=== PATIENT | female | born 1935 | race Caucasian/White ===

== ENCOUNTER 2019-03-09 07:03 | Observation (INO) | payer OTHER ==
[2019-03-06 11:37] LABS: Absolute Lymphocytes (CBC) 1.8 K/uL (0.7-4.9); Basophils % 0.9 % (0-1.3); Hematocrit 38.8 % (36.0-45.0); MPV 9.5 fL (7.6-11.3); RBC Red Blood Cell Count 4.32 M/uL (3.86-4.86)
--- NOTE | 2019-03-06 11:47 | RAD REPORT ---
EXAM DESCRIPTION: RAD - Chest Pa And Lat (2 Views) - 03/06/2019 11:09 am CLINICAL HISTORY: Preop chest, pending hernia repair COMPARISON: None. TECHNIQUE: PA and lateral views of the chest were obtained. FINDINGS: The lungs are clear of an acute infiltrate, mass or failure finding. A very small less becca n 5 mm nodule in the left upper lung field is seen. Long-term significance is doubtful. The patient h as smoking history or other clinical concern follow-up imaging could be performed in 4-6 months. This is not of acute clinical significance. Scarring changes in the medial aspect of each lower lung field noted. Patient may have bronchiectasis as well. Heart size is normal and central vasculature is within normal limits. No pleural effusion or pneu mothorax seen. No acute bony finding noted. No aortic abnormality. IMPRESSION: No acute cardiopulmonary finding seen pertaining to the pending surgical procedure. Very small pulmonary nodule left upper lobe is not acutely significant. At less than 5 mm this is pro bably not significant but can be re-evaluated in 4-6 months with chest film. Chronic parenchymal changes in each medial lung base.
[2019-03-06 11:58] LABS: Potassium 4.2 mmol/L (3.5-5.1)
--- NOTE | 2019-03-06 13:32 | EKG ---
Test Date: 2019-03-06 Test Time: 10:57:58 Coding Technician: TG MEASUREMENT RESULTS: Intervals: Rate: 65 MT: 148 QRSD: 84 QT: 414 QTc: 430 [place]: P: 41 MT: 148 QRS: 55 T: 72 INTERPRETIVE STATEMENTS: Normal sinus rhythm Normal ECG No previous ECG available for comparison Electronically Signed On 03-06-19 13:32:00 CDT by Baldemar Holley
[2019-03-09] MEDS ORDERED: Ringers Lactate 1,000 ML IV ONE ×2 (07:42→09:47)
[2019-03-09] MEDS ORDERED: ROCURONIUM 50 MG/5 ML VIAL IV ONE (08:16)
[2019-03-09] MEDS ORDERED: PROPOFOL 200 MG/20 ML VIAL IV ONE (08:16)
[2019-03-09] MEDS ORDERED: dexAMETHasone 10 MG/ML VIAL ONE (08:16)
[2019-03-09] MEDS ORDERED: FENTANYL CITR 250 MCG/5 ML ONE (08:16)
[2019-03-09] MEDS ORDERED: LIDOCAINE 2% MPF 5 ML VIAL ONE (08:16)
[2019-03-09] MEDS ORDERED: MIDAZOLAM HCL 2 MG/2 ML INJ ONE (08:33)
[2019-03-09] MEDS ORDERED: CEFAZOLIN/SWI 1gm 1 GM/10 ML SYR ONE (08:36)
[2019-03-09] MEDS ORDERED: EPHEDRINE SULF 50 MG/ML VIAL ONE (08:58)
[2019-03-09] MEDS ORDERED: KETOROLAC 30 MG/ML INJ ONE (10:06)
--- NOTE | 2019-03-09 10:10 | P.BOP ---
Preoperative diagnosis: incarcerated small bowel incisional lower ventral hernia and incarc umbilic Postoperative diagnosis: same plus extensive intrabdominal adhesions Primary procedure: 1. Exploratory laparotomy, 2. extensive Lysis of adhesions Secondary procedure: 3. Open repair of incarcerated small bowel incisional lower ventral hernia Other procedure(s): 4. Open repair of incarcerated periumbilical hernia Estimated blood loss: <10cc Specimen: hernia sac Findings: incarcerated small bowel lower ventral area Anesthesia: General Complications: None Transferred to: Recovery Room Condition: Good
[2019-03-09] MEDS ORDERED: SODIUM CHLORIDE 0.9% 10ML INJ IV PRN (10:11)
[2019-03-09] MEDS ORDERED: ONDANSETRON 4 MG/2 ML VIAL IV PRN (10:11)
[2019-03-09] MEDS ORDERED: MORPHINE 2 MG/ML SYR IV PRN (10:22)
[2019-03-09] MEDS ORDERED: HYDROCODONE/APAP 5/325 MG TAB PO PRN (10:22)
[2019-03-09] MEDS: NA CHLORIDE 0.9% 1,000 ML IV SCH ×2 (11:00→21:10)
[2019-03-09] MEDS ORDERED: PROMETHAZINE 25 MG/ML VIAL ONE (11:25)
[2019-03-09] MEDS: MORPHINE 4 MG/ML SYR ONE ×2 (11:26→11:34)
[2019-03-09] MEDS ORDERED: METOCLOPRAMIDE 10 MG/2mL INJ ONE (11:39)
[2019-03-09] MEDS ORDERED: CEFOXITIN 1 GM in NA CHLORIDE 0.9% 100 ML IVPB SCH (12:00)
[2019-03-09] MEDS: CEFOXITIN/SWI 1gm 1 GM/10 ML SYR IV SCH ×2 (13:26→18:32)
[2019-03-10] MEDS: CEFOXITIN/SWI 1gm 1 GM/10 ML SYR IV SCH (00:44)
[2019-03-10 02:12] LABS: Urine Appearance CLOUDY; Urine Bilirubin NEGATIVE (NEG); Urine Blood 3+ (NEG); Urine Color YELLOW; Urine Glucose NEGATIVE (NEG); Urine Protein NEGATIVE (NEG); Urine Urobilinogen 0.2 mg/dL (0.2-1.0); Urine pH 5.5 (5.0-7.0)
[2019-03-10 02:13] LABS: Urine Microscopic Reflex ORDER UMIC
[2019-03-10 02:34] LABS: Urine Bacteria <20 /HPF (<20); Urine Culture Reflex Order REFLEXED; Urine Mucus SLIGHT /HPF (NONE SEEN); Urine RBC 20-50 /HPF (NONE SEEN)
[2019-03-10] MEDS: NA CHLORIDE 0.9% 1,000 ML IV SCH ×2 (03:16→12:23)
[2019-03-10 06:27] LABS: Absolute Lymphocytes (CBC) 1.3 K/uL (0.7-4.9); Hematocrit 34.7 % (36.0-45.0); Lymphocytes % 9.4 % (15.3-44.8); MPV 9.6 fL (7.6-11.3); RBC Red Blood Cell Count 3.83 M/uL (3.86-4.86)
[2019-03-10 06:45] LABS: Potassium 4.7 mmol/L (3.5-5.1)
[2019-03-10] MEDS ORDERED: PANTOPRAZOLE 40 MG INJ IVP SCH (09:00)
[2019-03-10] MEDS ORDERED: ENOXAPARIN 40 MG/0.4 ML SQ SCH (09:00)
--- NOTE | 2019-03-18 23:07 | OP ---
Date of Procedure: 03/09/2019 Surgeon: Yared Hummel MD Preoperative Diagnoses: Incarcerated small bowel incisional lower ventral hernia and also an incarce rated umbilical hernia. Postoperative Diagnoses: Incarcerated small bowel incisional lower ventral hernia and also an incarc erated umbilical hernia, extensive intraabdominal adhesions. Procedures: 1.Exploratory laparotomy. 2.Extensive lysis of adhesions. 3.Open repair of incarcerated lower ventral hernia. 4.Open repair of incarcerated umbilical hernia. Specimen: Hernia sac. Findings: Incarcerated small bowel on the ventral hernia, extensive intraabdominal adhesions in the lower abdomen from previous surgeries. Anesthesia: General plus local. Indications: This is the case of a female who comes to us with bowel trapped in the ventral hernia w ith tenderness. We explained to her the options discussed above and she signed a consent after fully explaining to her and her daughter the benefits, alternatives, and risks of the surgery, which inclu de, but not limited to infection, bleeding, damage to adjacent structures, anesthesia complication, r ecurrence, [place], and even . She also understands this may not relieve any symptoms. She might ne ed more than one surgical intervention. She also understands the importance of not gaining weight an d no heavy lifting. She signed a consent. She understands she may or may not have mesh placed in th at area. Description Of Procedure: Patient was brought to the operating room, placed in supine position. Ane sthesia was done without complication. Abdominal area was prepped and draped in sterile fashion. A time-out was called. Midline incision was made first on the umbilical region. She had a midline inc ision from previous surgeries, but we get access to the umbilical hernia. Then palpate di rectly if possible the lower ventral hernias to make an incision right in that location. So, we made an incision in that area. Incision was carried down, umbilical hernia was opened, had incarcerated omentum after we opened the hernia sac, removed the hernia sac. When I put my finger on it, patient had extensive intraabdominal adhesions to the anterior abdominal wall. So, we had to extend incision on the skin, find the ventral hernia right above the pubic symphysis. Then, an incision was made in that area. Once we opened that area, we palpated the hernia, we noticed small bowel not only coming above the pubis symphysis, but also laterally. The patient has 2 areas of collection of this small bowel, surprised had not been completely obstructed yet. Carefully, we opened the hernia sac. We had to understand also there was a bladder also right in that region trying to come through the hernia defect too. So, took significant amount of time for all to do lysis of adhesions in order for us to release the bowel and also release the bladder to the point that the fascial defect can be seen. We took more than half an hour just to the adhesions. After that, we removed the h ernia sac and we were able to approximate the fascial edges. This was done with the help of nylon #2 . Before we closed that area, we made sure the area of the lysis of adhesions with [place] scissors wit h no bleeding and no enterotomies. The bladder also was protected at all times. Once we closed the defect, we proceeded then to carefully go into the base of the umbilical region and also closed the u mbilical hernia. The area was irrigated. That left us with large cavities on the subcutaneous tissu e where the hernias were present, so we proceeded to try to obliterate that the best we can with abso rbable stitches and the skin with eduarda. Sponge count and instrument count were correct. Patient tolerated the procedure well. Patient was sent to recovery in stable condition. the deanne ent' age, she preferred to stay in the hospital. We expect also to develop an ileus. She may need p ain control. We did extensive lysis of adhesions and release of that bowel once again may not work p roperly for several days. So, we are going to admit her to the hospital for pain control, hydration since she is not going to be eating either, for support a nd also for pain control. STAS/JOSE MARTIN Voice ID: [id number] Report ID: [id number]
== END 2019-03-10 17:14 | disposition home or self-care (01) ==
LOC: OR 07:03 → 2ND 10:13
PROVIDERS: ADMIT Surgery; ATTEND Surgery
PROC: 0WQF0ZZ Repair Abdominal Wall, Open Approach (ICD-10-PCS; principal; 2019-03-09 08:30)
PROC: 0WQF0ZZ Repair Abdominal Wall, Open Approach (ICD-10-PCS; 2019-03-09 08:30)
PROC: 0DNW0ZZ Release Peritoneum, Open Approach (ICD-10-PCS; 2019-03-09 08:30)
DX: K43.0 Incisional hernia with obstruction, without gangrene (principal); K42.0 Umbilical hernia with obstruction, without gangrene; I10 Essential (primary) hypertension; E07.9 Disorder of thyroid, unspecified; Z79.82 Long term (current) use of aspirin; Z79.899 Other long term (current) drug therapy; K66.0 Peritoneal adhesions (postprocedural) (postinfection)
CPT/HCPCS: 49561; 49587; 93005; 85025 ×2; 87086; 80048 ×2; 36415 ×2; 88302; 71046; 97116; 97161; 97530; 49999; J2704; J2765; J2550; C9113; J1650; J2250; J3010; J1100; J0690; J7030 ×2; J2405; G0379; G0378; 81003; 81015; 87088